=== PATIENT | male | born 1965 | race Caucasian/White ===

== ENCOUNTER → 2016-08-10 | Outpatient (CLI) | payer BC, OTHER ==
[~2016-08-10] MED LIST: AMB10 PO; ATOR-22 PO; CHOL1TAB42 PO; CLC100 PO; HYDR-5688 PO; ODVTWSS MS; OXYC-57 PO; OXYSR10 PO; PRLSR20 PO; PRLSRUNK
== END | disposition home or self-care (01) ==
LOC: C.RDSM 07:30
PROVIDERS: ATTEND Physical Medicine & Rehabilitation Sports Medicine
DX: M25.562 Pain in left knee (principal); Z96.60 Presence of unspecified orthopedic joint implant

== ENCOUNTER → 2016-08-16 | Outpatient (CLI) | payer BC, OTHER ==
--- NOTE | 2016-08-16 13:39 | DIAGNOSTIC IMAGING REPORT ---
ORBIT RADIOGRAPHS 3 VIEWS HISTORY: Pre-MRI screening. COMPARISON: ORBIT radiographs June 02, 2009. FINDINGS: There are no radiopaque foreign bodies identified within the orbits. IMPRESSION: No radiopaque foreign bodies identified within the orbits. Electronically signed by: Corey Morrison M.D. 08/16/2016 1:38 PM Dictated Date/Time: 08/16/2016 1:37 PM
--- NOTE | 2016-08-17 08:59 | DIAGNOSTIC IMAGING REPORT ---
PELVIS WITHOUT CONTRAST (MRI) CLINICAL HISTORY: Mass left pelvis status post bone graft harvest. COMPARISON STUDY: Pelvis radiograph July 21, 2007. TECHNIQUE: Utilizing a 1.5 Pamela magnet and dedicated coil, multiplanar, multiecho imaging of the pelvis was performed without intravenous contrast. FINDINGS: Markers were placed on the skin at site of palpable abnormality. Immediately deep to these markers, there is a 10.7 x 4 x 7.7 cm subcutaneous fluid collection which overlies the lateral aspect of the left iliac bone harvest site. A tract of fluid extends from this collection into the bone at the harvest site. There are fluid fluid levels with suspected debris within the subcutaneous fluid collection. No mass is identified on this exam. There is trace adjacent fluid. Postsurgical finding within the spine are noted. There is no pelvic lymphadenopathy. No additional fluid collections are present. There is no suspicious marrow replacement. No ascites is present within the pelvis. IMPRESSION: 10.7 x 4 x 7.7 cm subcutaneous fluid collection of the left hemipelvis which reflects the palpable abnormality and appears to communicate with the left iliac bone harvest site. Electronically signed by: Corey Morrison M.D. 08/17/2016 8:57 AM Dictated Date/Time: 08/16/2016 2:37 PM
== END | disposition home or self-care (01) ==
LOC: C.MRI 12:23
PROVIDERS: ATTEND Physical Medicine & Rehabilitation Sports Medicine
DX: R22.42 Localized swelling, mass and lump, left lower limb (principal)

== ENCOUNTER → 2016-08-27 | Outpatient (CLI) | payer BC, OTHER | END | disposition home or self-care (01) | LOC: C.RDSM 07:52 | PROVIDERS: ATTEND Physical Medicine & Rehabilitation Sports Medicine | DX: R22.42 Localized swelling, mass and lump, left lower limb (principal) ==

== ENCOUNTER → 2016-08-27 | Outpatient (CLI) | payer BC, OTHER ==
[2016-08-27 10:11] LABS: BASO % 0.5 %; BASO ABS # 0.03 K/uL (0-0.2); COMPLETE YES; EOS % 1.6 %; HEMATOCRIT 45.2 % (42-52); IG% 0.3 %; LYMPH % 43.8 %; LYMPH ABS # 2.77 K/uL (1.2-3.4); MEAN CELL VOLUME 89.9 fL (80-100); MEAN CORPUSCULAR HGB CONC 34.5 g/dl (32-36); MEAN PLATELET VOLUME 10.4 fL (7.4-10.4); MONO % 13.6 %; NEUT % 40.2 %; PLATELET COUNT 171 K/uL (130-400); RED BLOOD COUNT 5.03 M/uL (4.7-6.1); WHITE BLOOD COUNT 6.33 K/uL (4.8-10.8)
[2016-08-27 11:25] LABS: SYNOVIAL FLUID APPEARANCE TURBID; SYNOVIAL FLUID COLOR TAN
== END | disposition home or self-care (01) ==
LOC: C.LAB 09:15
PROVIDERS: ATTEND Physical Medicine & Rehabilitation Sports Medicine
DX: R22.42 Localized swelling, mass and lump, left lower limb (principal)

== ENCOUNTER → 2016-10-15 | Outpatient (CLI) | payer BC, OTHER | END | disposition home or self-care (01) | LOC: C.RDSM 08:14 | PROVIDERS: ATTEND Physical Medicine & Rehabilitation Sports Medicine | DX: M25.561 Pain in right knee (principal) ==

== ENCOUNTER → 2016-10-25 | Outpatient (CLI) | payer BC, OTHER ==
[~2016-10-25] MED LIST changes: -CLC100 PO; -ODVTWSS MS; -OXYC-57 PO; -OXYSR10 PO; -PRLSRUNK
== END | disposition home or self-care (01) ==
LOC: C.CPL 10:34
PROVIDERS: ATTEND Physician Assistant
DX: R22.42 Localized swelling, mass and lump, left lower limb (principal); Z01.818 Encounter for other preprocedural examination

== ENCOUNTER → 2016-10-28 | Day surgery (SDC) | payer BC, OTHER ==
[2016-10-19 10:16] VITALS: Ht 182.9 cm; Wt 136.4 kg
--- NOTE | 2016-10-27 12:14 | PAT Medication Instructions ---
Service Date Oct 27, 2016. Current Home Medication List Atorvastatin (Lipitor), 20 MG PO QAM Cholecalciferol (Vitamin D), 1 TAB PO QAM Hydrocodone/Acetaminophen 5MG/325MG ([place] 5MG/325MG), 1 TABLET PO BID PRN for Pain Omeprazole (Prilosec), 20 MG PO DAILY PRN for HEARTBURN Zolpidem Tartrate (Ambien *), 10 MG PO HS PRN Medication Instructions For Your Scheduled Surgery - Hold the following medications the morning of surgery: Cholecalciferol (Vitamin D), 1 TAB PO QAM - Take the following medications the morning of surgery with a sip of water: Hydrocodone/Acetaminophen 5MG/325MG ([place] 5MG/325MG), 1 TABLET PO BID PRN for Pain (okay to take up to 4 hours prior to surgery if needed) Omeprazole (Prilosec), 20 MG PO DAILY PRN for HEARTBURN (if needed) Atorvastatin (Lipitor), 20 MG PO QAM - Take the following medications as scheduled the night before surgery: Zolpidem Tartrate (Ambien *), 10 MG PO HS PRN (if needed) Hydrocodone/Acetaminophen 5MG/325MG ([place] 5MG/325MG), 1 TABLET PO BID PRN for Pain (if needed) Omeprazole (Prilosec), 20 MG PO DAILY PRN for HEARTBURN (if needed) If you have any questions please call us at [phone] or [phone] or [phone]
[2016-10-27 13:23] LABS: HEMATOCRIT 45.2 % (42-52); MEAN CELL VOLUME 90.8 fL (80-100); MEAN CORPUSCULAR HEMOGLOBIN 31.7 pg (25-34); MEAN PLATELET VOLUME 10.5 fL (7.4-10.4); PLATELET COUNT 183 K/uL (130-400); RED BLOOD COUNT 4.98 M/uL (4.7-6.1)
[2016-10-27 13:29] LABS: BUN/CREATININE RATIO 14.6 (10-20); CALCIUM 9.1 mg/dl (8.5-10.1); CREATININE 0.96 mg/dl (0.60-1.40); POTASSIUM 4.5 mmol/L (3.5-5.1)
[~2016-10-28] VITALS: Ht 182.9 cm; Wt 136.4 kg
[~2016-10-28] MED LIST changes: +ATROPINE SULFATE 0.1 MG/ML 5ML SYR IV PRN; +BUPIVACAINE/EPINEPHRINE 0.5% MPF 1:200,000 10 ML VIAL ONE; +CEFAZOLIN 3000 MG/65 ML D5W IV SCH; +CEFAZOLIN SOD IV SCH; +DEXAMETHASONE SOD INJ 4 MG/ML VIAL ONE; +EpHEDrine SULFATE INJ 50 MG/ML AMP IV PRN; +FENTANYL CITRATE INJ 50 MCG/1 ML 2 ML VIAL IV PRN; +FENTANYL CITRATE INJ 50 MCG/1 ML 2 ML VIAL ONE; +LACTATED RINGER'S 1000ML 1,000 ML IV SCH; +LIDOCAINE HCL 2% 2 ML VIAL (20MG/ML) ONE; +LIDOCAINE/EPINEPHRINE 1% INJ 50 ML VIAL ONE; +MIDAZOLAM HCL 1 MG/ML 2ML VIAL ONE; +MoRPHine SULFATE 2 MG/ML CARP IV PRN; +MoRPHine SULFATE 4 MG/ML 1 ML CARP\\VIAL IV PRN; +ONDANSETRON INJ 2 MG/ML 2 ML VIAL IV PRN; +ONDANSETRON INJ 2 MG/ML 2 ML VIAL ONE; +OXYCODONE/ACETAMINOPHEN 5-325 TAB PO PRN; +POVIDONE-IODINE OP SOLN 30 ML BTL TOP ONE; +PROPOFOL IV EMULSION 10 MG/ML 20 ML VIAL IV ONE; +SODIUM CHLORIDE 0.9% 1000ML 1,000 ML IV SCH
--- NOTE | 2016-10-28 11:16 | History & Physical Bridge Note ---
H&P Re-Evaluation Bridge Note: I have examined the patient, reviewed the History & Physical and in the interval since the performance of the History & Physical I have noted the following changes of clinical significance: No changes noted
--- NOTE | 2016-10-28 13:34 | Discharge Instructions-SurgCtr ---
Discharge Instructions Date of Service Oct 28, 2016. Visit Reason for Visit: Left Hip Cyst Discharge Discharge Diagnosis / Problem: left hip cyst Discharge Goals Goal(s): Decrease discomfort, Improve function, Increase independence Activity Recommendations Activity Limitations: per Instructions/Follow-up section Weightbearing Status: Left weightbearing (as tolerated) Anesthesia . Post Anesthesia Instructions: If you have had General Anesthesia or IV Sedation: * Do not drive today. * Resume driving when surgeon permits. * Do not make important decisions or sign legal documents today. * Call surgeon for: 1. Temperature elevations greater than 101 degrees F. 2. Uncontrollable pain. 3. Excessive bleeding. 4. Persistent nausea and vomiting. 5. Medication intolerance (nausea, vomiting or rash). * For nausea and vomiting use only clear liquids such as: tea, soda, bouillon until nausea subsides, then gradually increase diet as tolerated. * If you have any concerns or questions, call your surgeon's office. If physician is unavailable and it is an emergency, call 911 or go to the nearest emergency room. . Instructions / Follow-Up Instructions / Follow-Up DIET: * Resume previous diet. MEDICATIONS: * Please take your prescriptions as instructed at your pre-op appointment and/ or see medication discharge instructions listed above. * If concerns develop, call your physician's office at . SPECIAL CARE INSTRUCTIONS: * Ice to left hip as needed for pain and swelling. * Elevate left lower extremity as needed for swelling. * Keep dressing clean, dry, intact. * Empty and record Hemovac drain every 8 hours and as needed. Keep track of the amount of drainage emptied. * Use crutches or walker to assist with ambulation. * Your surgical extremity may be discolored due to prepping agents used on the skin. A bluish-green tint is a normal variant and should not cause alarm. Call your doctor at [phone] if: * Temperature above 101 degrees * Pain not relieved by pain medicine ordered * There is increased drainage or redness from any incision * You have any unanswered questions, problems or concerns. FOLLOW UP VISIT: * If not already scheduled, please call the office at to schedule a follow-up appointment. * You have a follow-up scheduled at [facility] orthopedics for dressing change on 10/29/2016 at 1:00 PM. * You have a follow-up scheduled with Dr. Rodriguez on 11/10/2016 at 12:00 PM Diet Recommendations Home Diet: no limitations, resume previous diet Procedures Procedures Performed: Left Hip Cyst Open Excision Pending Studies Studies pending at discharge: no Medical Emergencies . Who to Call and When: Medical Emergencies: If at any time you feel your situation is an emergency, please call 911 immediately. . Non-Emergent Contact Non-Emergency issues call your: Surgeon Call Non-Emergent contact if: temperature is above 101, your pain is not controlled, wound has increased drainage, wound has increased redness, wound has increased pain, you have any medication questions . . "Provider Documentation" section prepared by Barbara Sousa. . [place] Drug Monitoring Program Search Results: patient reviewed within database, no issues identified
--- NOTE | 2016-10-28 13:35 | [facility] Operative Report ---
Operative Report Operative Date Oct 28, 2016. Pre-Operative Diagnosis Left Hip Cyst Post-Operative Diagnosis Same Procedure(s) Performed Left Hip Cyst Open Excision Surgeon Dr. William Rodriguez Crane Ladle Person Surgeon(s) Khushbu Sousa PA-C Estimated Blood Loss 25 mL Findings Large fluid-filled cyst in the left iliac crest region status post iliac crest bone graft. Necrotic debris or foreign material in bone bed of prior iliac crest bone graft site. Specimens A. Cyst Left Hip B. Cyst Debris Left Hip Drains 2 Anesthesia laryngeal mask Complication(s) None Disposition Recovery Room / PACU Implants None Indications Patient's a 51-year-old male. He had a high tibial osteotomy done several years ago. Subsequent to that he developed a cyst at the site of the iliac crest bone graft harvest site. This was utilized to help heal his high tibial osteotomy. This cyst was aspirated in the past. The cyst was left as is until recently when it began to enlarge. The cyst was aspirated recently and cultures were obtained. Cholesterol crystals were noted. There was a low to mid range white blood cell count. Aerobic anaerobic fungal and AFB cultures were all negative. MRI demonstrated a cystic structure communicating with the iliac crest bone graft harvest site. The patient wishes to have this excised as it is very large. Description of Procedure Informed consent was obtained. Patient identified as Paulie Mariscal. He identified the operative site as the left hip. I marked with my initials. Preoperative surgical timeout performed. Appropriate dose of IV antibiotics was given. He was positioned supine on the operating room table. A laryngeal mask anesthetic was administered. A bump was placed under the left hip. He had a cyst about the size of a baseball located in the deep subcutaneous tissues of the left hip this was soft and pliable and it was located along the iliac crest. DVT prophylaxis will be don't thoroughly patient mobility. A routine prep and drape was performed. The prior surgical incision was utilized and opened with the knife. Blush Marcellus is utilized down through subcutaneous tissues. The cyst was identified. It was fairly readily dissected out from the surrounding tissues using electrocautery blunt dissection and scissors. Care was taken to protect the lateral femoral cutaneous nerve near the anterior region of the iliac crest. The nerve was not encountered during the dissection. Proficient portion of the cyst was dissected out of the subcutaneous tissues down to the level of the iliac crest. A pedicle was identified coursing towards the iliac crest bone graft site. The cyst was at this time amputated. It had a yellowish opaque fluid in it. Cyst had a very well-defined reactive zone. At this time I then encountered a lot more dense scar tissue around the prior iliac crest bone graft harvest site. Using combination of blunt dissection scissors and electrocautery this was dissected out down to the level of the bone. Within the bone bed of the prior iliac crest bone graft harvest site was brownish debris. This was curettaged out down to normal bone. Using a combination of curettage and rongeur the entire cyst area at the iliac crest was cleaned out down to normal-appearing bone. 2 separate specimens were sent one for the cyst itself and the other one for this debris of which there was about 25 mL. This could've been of necrotic bone Gelfoam or perhaps bone wax. Gelfoam was used in the prior surgery but documented that it was not left in place. Betadine lavage was performed. 2 drains were inserted one deep and one superficial. After the sequential closure of the layers the drains were pulled partially out tubing ensured there were nonincarcerated. The drains were brought out in line with the anterior portion of the incision and about a centimeter anterior to it. She irrigation was performed. 6 mL of local anesthetic 1% lidocaine and half percent Marcaine both with epinephrine were infiltrated into the iliac crest bone graft site. The remainder of the mixture was injected into the skin and subcutaneous tissues. The fascia over the iliac crest was closed with interrupted #1 Vicryl taking care nonincarcerated drain. Subcutaneous tissues were closed with 0 Vicryl 2-0 Vicryl and basil. Again care was taken not to incarcerate the drain. Soft sterile dressing was applied. The patient was awakened from anesthesia without difficulty and taken to the recovery room in stable condition. Specimens were as mentioned above. Counts were correct in the case. Blood loss was approximately 25 mL. At the conclusion operation I spoke patient's informed her my findings. Postoperative instructions were given. He will be seen tomorrow to have his drains pulled and if necessary drains will be continued through the weekend and they will be instructed to pull them at home. There is no significant bleeding and the wound was dry when the incision was closed. He may weight-bear as tolerated. He does not require any formal DVT prophylaxis. I attest to the content of the Intraoperative Record and any orders documented therein. Any exceptions are noted below.
--- NOTE | 2016-10-28 13:37 | [facility] Operative Report ---
Operative Report Operative Date Oct 28, 2016. Pre-Operative Diagnosis Left Hip Cyst Post-Operative Diagnosis Same Procedure(s) Performed Left Hip Cyst Open Excision Surgeon Dr. Eliud Rodriguez Software Database Architect Surgeon(s) Barbara Sousa PA-C Estimated Blood Loss 25 mL Findings Left hip cyst Specimens A. Cyst Left Hip B. Cyst Debris Left Hip Drains Hemovac 2 Anesthesia general anesthesia Complication(s) None Disposition Recovery Room / PACU (stable) Indications Patient is a 51-year-old male who is status post left tibial osteotomy with iliac crest bone grafting approximately 12 years ago. He recently has developed a cyst on his left hip at the iliac crest bone site. He says that fluctuated in size for the last couple of years. He developed pain a few months ago and was evaluated by Dr. Rodriguez. The cyst was aspirated and cultures were obtained and no infection was identified. He elected to have it removed. Surgical intervention was discussed. Risks and complications discussed. Informed consent obtained. X-rays which showed no bony abnormality and a MRI to further evaluate the cyst location. Description of Procedure Patient was taken to the operating room, placed under general anesthesia. He was given 3 g of IV Ancef for surgical prophylaxis. Timeout performed. This prepped and draped in routine sterile fashion. I was present during the entire case, please see Dr. Rodriguez's operative report for further detail. Patient was awakened and transferred to the recovery room in stable condition. I attest to the content of the Intraoperative Record and any orders documented therein. Any exceptions are noted below.
[2016-10-28 14:30] VITALS: TEMP 36.4
[2016-10-28 15:11] VITALS: BP 120/81; PULSE 78; O2SAT 94
--- NOTE | 2016-10-28 15:14 | Anesthesia Progress Nt - [facility] ---
Anesthesia Post Op Note Date & Time Oct 28, 2016 at 15:13 Vital Signs Pain Intensity: 0 Vital Signs Past 12 Hours Date Time Temp Pulse Resp B/P (MAP) Pulse Ox O2 Delivery O2 Flow Rate FiO2 10/28/16 15:11 78 16 120/81 (94) 94 Room Air 10/28/16 14:30 36.4 78 16 134/77 (96) 94 Room Air 10/28/16 14:13 36.4 79 16 115/79 97 Room Air 10/28/16 14:07 21 10/28/16 14:07 83 21 10/28/16 14:05 141/83 10/28/16 14:02 84 13 10/28/16 14:02 83 13 131/78 95 10/28/16 13:57 84 17 10/28/16 13:57 84 17 98 10/28/16 13:55 129/71 10/28/16 13:52 78 6 100 10/28/16 13:52 78 6 10/28/16 13:51 121/59 10/28/16 13:47 79 4 10/28/16 13:47 80 4 100 10/28/16 13:45 122/73 10/28/16 13:42 81 14 100 10/28/16 13:42 80 14 10/28/16 13:41 110/64 10/28/16 13:40 85 17 99 10/28/16 13:40 84 17 10/28/16 13:35 89 12 10/28/16 13:35 89 12 122/65 97 10/28/16 13:32 122/65 10/28/16 13:31 36.4 86 16 122/65 100 Mask 10 10/28/16 10:00 37.0 61 22 131/84 (100) 96 Room Air Notes Mental Status: alert / awake / arousable, participated in evaluation Pt Amnestic to Procedure: Yes Nausea / Vomiting: adequately controlled Pain: adequately controlled Airway Patency, RR, SpO2: stable & adequate BP & HR: stable & adequate Hydration State: stable & adequate Anesthetic Complications: no major complications apparent
== END | disposition home or self-care (01) ==
LOC: X.SURG 09:34
PROVIDERS: ATTEND Physical Medicine & Rehabilitation Sports Medicine
DX: M71.352 Other bursal cyst, left hip (principal); K21.9 Gastro-esophageal reflux disease without esophagitis; E66.9 Obesity, unspecified; Z79.899 Other long term (current) drug therapy

== ENCOUNTER 2021-10-20 06:12 | Observation (INO) ==
--- NOTE | 2021-09-29 10:09 | History & Physical Report ---
Date of Service September 29, 2021 date of surgery: 10/20/21 procedure: Right Total Knee Arthroplasty Surgeon: Sathya Serrano Assessment & Plan (1) Arthritis of right knee: Plan: Risks and benefits of procedure discussed in detail today, patient would like to proceed with a Right total knee replacement at [facility] as scheduled. will obtain medical clearance from Dr Danielle prior to surgery as well as obtain PATs at [facility]. He also has a pain contract with Dr Danielle and he will discuss with her his post op pain medications. Will place on ASA 81mg po bid x 1 month post op, f/u 2 weeks post op for routine post-operative care and x-ray, sooner if having any problems. will make arrangements for HHPT at the time of discharge. At this point in time, has failed conservative measures and would like to proceed with surgical intervention. The risks and benefits have been discussed including, but not limited to, risk of infection, nerve injury, stiffness, loss of motion, failure to improve, etc. Reasonable outcomes and options of treatment were discussed. An explanation of appropriate alternatives to the procedure that may be advantageous were discussed and their risks and benefits, as well as the risks and benefits of not proceeding with treatment. I offered to answer any additional inquiries concerning the treatment involved. All the patient's questions were answered. The patient is agreeable, understanding of the treatment plan and alternatives, and wishes to proceed with the treatment plan. History of Present Illness Chief Complaint: right knee pain Primary Care Provider: Melly Danielle Mr Wyman is a 56 year old male who complains of right knee pain, presents for pre-op evaluation prior to a right total knee replacement by Dr Serrano at [facility]. He complains of pain, decreased range of motion, instability and stiffness in his right knee. Currently he states that the symptoms are moderate-severe and rated at 7/10. The pain is described as aching, sharp and throbbing. His symptoms are aggravated by ascending stairs, daily activities, first steps while awake walking. Prior NSAIDs include IBU and Aleve. He has been treated with previous visco injections as well as cortisone injection in the past without much relief. He does have history left TKA by Dr Rodriguez several years ago. Allergies Allergy/AdvReac Type Severity Reaction Status Date / Time No Known Allergies Allergy Unknown Verified 06/09/21 07:29 Home Medications Medication Instructions Recorded Confirmed Type aspirin 81 mg tablet,delayed 81 mg PO QAM 06/09/21 06/09/21 History release atorvastatin 20 mg tablet 20 mg PO QAM 06/09/21 06/09/21 History cholecalciferol (vitamin D3) 25 25 mcg PO QAM 06/09/21 06/09/21 History mcg (1,000 unit) capsule (Vitamin D3) meclizine 25 mg tablet 25 mg PO BID PRN 06/09/21 06/09/21 History saw palmetto 160 mg capsule 160 mg PO QAM 06/09/21 06/09/21 History zolpidem 10 mg tablet (Ambien) 10 mg PO HS 06/09/21 06/09/21 History Past Med/Surg History Medical History Acid reflux occasional, chronic, stable per pt, triggered by overeating Dyspnea on exertion ongoing x mos, ongoing eval with PCP, worsened since COVID illness 04/2021 Elevated hemidiaphragm right History of COVID-19 05/25/21>BAD COLD SYMPTOMS feeling better but reported pre-existing dyspnea on exertion has worsened including with regular walking, ongoing evaluation with PCP Hx of vertigo occasional, chronic, denies specific trigger, prn meclizine Hyperlipidemia Insomnia Surgical History Fusion of spine LUMBAR H/O knee surgery MULTIPLE LEFT KNEE SURGERIES BEFORE TKA History of appendectomy History of colonoscopy History of radial keratotomy History of tooth extraction History of total knee replacement LEFT Hx of vasectomy [place] teeth removed Family History Father Family history of diabetes mellitus Brother Family hx of colon cancer Other No family history of adverse response to anesthesia Social History Smoking Status: Never smoker Second Hand Exposure: Yes ("YEARS AGO"); Hx Alcohol Use: Yes Alcohol type: beer Preferred Language: Upper Sorbian Gaming Cage Worker Required: No Beliefs That Will Affect Care: None Current Living Situation: Spouse Feels Safe at Home: Yes Assistive Devices: Cane, Denture - Upper and Glasses Review of Systems Review of Systems: All systems reviewed & are unremarkable except as noted in HPI & below Constitutional: no fever, no chills and no sweats Respiratory: no cough and no dyspnea Cardiovascular: no chest pain, no dyspnea and no orthopnea Gastrointestinal: no abdominal pain, no nausea and no vomiting Musculoskeletal: as per Subjective / HPI Physical Exam Physical Exam: HT: 72 in WT: 300 lb Constitutional: WD/WN, vitals as above no acute distress Respiratory: normal respiratory effort, lungs clear to auscultation no respiratory distress, no labored breathing and does not use accessory muscles Cardiovascular: RRR, no murmur, no edema Gastrointestinal (Abdomen): normal bowel sounds, soft, nontender, no hepatosplenomegaly Musculoskeletal: Knee: + knee abnormal to inspection (RIGHT KNEE), + effusion (+1 effusion), + limited ROM of knee (ROM 0/3/110), + knee ROM with crepitation, + joint line tenderness (medial joint line) and + Andi's sign positive; no deformity, no skin erythema, no ecchymosis, no valgus laxity, no varus laxity, anterior drawer test negative, Mary's sign negative and pivot shift test negative Results & Data Results & Data ([facility]) Diagnostic Findings Right Knee X-ray: Right knee series showing advanced degenerative changes to the right knee, narrowing of the medial compartment and patello-femoral joint with patellar spurring noted, findings showing joint space narrowing of the medial compartment and patello-femoral joint, osteophyte formation and subchondral sclerosis noted. overall varus alignment. no acute bony pathology noted.
--- NOTE | 2021-10-09 13:54 | Anesthesiology Consultation ---
Date of Service October 09, 2021 Assessment & Plan (1) Encounter for pre-operative examination: Plan - PCP clearance 07/31/21: "...stress test negative. Labwork appropriate...cleared for R total knee replacement from PCP standpoint...being worked up for sleep apnea..." - COVID screening: Per retort unloader on 10/09/2021: Travel screen negative, no known COVID-19 positive contacts or current COVID-19 related symptoms in past 2 weeks. Pt vaccinated. Surgeon arranging preop COVID testing, scheduled 10/16/2021. Awaiting results. Chart Review Chart Review: Acceptable Risk for Surgery and Patient NOT seen in Pre Admission Testing History Surgery Operation Date: 10/20/21 08:35 Proposed Procedures p Right Total Knee Arthroplasty - Sathya Serrano DO Height/Weight Height: 6 ft Weight: 133.81 kg Allergies Allergy/AdvReac Type Severity Reaction Status Date / Time No Known Allergies Allergy Unknown Verified 10/09/21 09:49 Medications Home Medications Medication Instructions Recorded Confirmed Last Taken aspirin 81 mg tablet,delayed 81 mg PO QAM 06/09/21 10/09/21 Unknown release atorvastatin 20 mg tablet 20 mg PO QAM 06/09/21 10/09/21 Unknown cholecalciferol (vitamin D3) 25 25 mcg PO QAM 06/09/21 10/09/21 Unknown mcg (1,000 unit) capsule (Vitamin D3) meclizine 25 mg tablet 25 mg PO BID PRN Vertigo 06/09/21 10/09/21 Unknown saw palmetto 160 mg capsule 160 mg PO QAM 06/09/21 10/09/21 Unknown zolpidem 10 mg tablet (Ambien) 10 mg PO HS 06/09/21 10/09/21 Unknown losartan 25 mg tablet 25 mg PO QAM 10/09/21 10/09/21 Unknown Past Medical History Medical History (Updated 10/09/21 @ 13:46 by Denise Hernandez PA-C) Acid reflux occasional, chronic, stable per pt, triggered by overeating Dyspnea on exertion ongoing x mos, ongoing eval with PCP, worsened since COVID illness 04/2021 update 10/09/21- states feeling better, continues to have mild sob at times mostly when active; recently started cpap Elevated hemidiaphragm right History of COVID-19 05/25/21>BAD COLD SYMPTOMS feeling better but reported pre-existing dyspnea on exertion has worsened including with regular walking, ongoing evaluation with PCP update 10/09/21- states feeling better, continues to have mild sob at times mostly when active; recently started cpap Hx of vertigo occasional, chronic, denies specific trigger, prn meclizine 10/09/21- has not had any vertigo issues in over 6 mos per pt Hyperlipidemia Hypertension Sleep apnea cpap Past Family History Family History Father Family history of diabetes mellitus Brother Family hx of colon cancer Other No family history of adverse response to anesthesia Past Surgical History Surgical History Fusion of spine LUMBAR H/O knee surgery MULTIPLE LEFT KNEE SURGERIES BEFORE TKA History of appendectomy History of colonoscopy History of radial keratotomy History of tooth extraction History of total knee replacement LEFT Hx of vasectomy [place] teeth removed Social History Smoking Status: Never smoker Do You Dip or Chew Tobacco: No Hx Alcohol Use: Yes Alcohol type: beer alcohol intake frequency: a few times a month Hx Substance Use: No substance use type: does not use Lab Results Anesthesia Preop Results Results Anesthesia Widget: WBC 6.06 K/ul (4.8-10.8) 10/05/21 Hgb 15.5 g/dl (14.0-18.0) 10/05/21 Hct 45.5 % (40.1-51.0) 10/05/21 Plt 179 K/uL (130-400) 10/05/21 Na 136 mmol/L (136-145) 10/05/21 K 4.3 mmol/L (3.5-5.1) 10/05/21 Cl 104 mmol/L (98-107) 10/05/21 CO2 26 mmol/L (21-32) 10/05/21 BUN 15 mg/dl (6-23) 10/05/21 Creat 0.81 mg/dl (0.6-1.4) 10/05/21 Glucose Level 121 mg/dl (70-99(Fasting)) H 10/05/21 PT 10.4 Seconds (9.0-12.0) 10/05/21 PTT 27.3 Seconds (21.0-31.0) 10/05/21 INR 1.0 (0.9-1.1) 10/05/21 HA1c 5.7 % (4.5-5.6) H 10/05/21 Urine Color Yellow 10/05/21 Urine Appearance Clear (Clear) 10/05/21 Urine pH 5.5 (4.5-7.5) 10/05/21 Urine Specific Supply 1.020 (1.000-1.030) 10/05/21 Urine Protein Negative (Negative) 10/05/21 Urine Glucose (UA) Negative (Negative) 10/05/21 Urine Ketones Negative (Negative) 10/05/21 Urine Blood Negative (Negative) 10/05/21 Urine Nitrite Negative (Negative) 10/05/21 Urine Bilirubin Negative (Negative) 10/05/21 Urine Urobilinogen Negative (Negative) 10/05/21 Urine Leukocyte Esterase Negative (Negative) 10/05/21 Testing Electrocardiogram Date: 06/12/21 Sinus rhythm with 1st degree AV block, rate 75 bpm Chest X-Ray Date: 06/12/21 EF 55-60% No regional wall motion abnormalities Mildly increased wall thickness Grade I diastolic dysfunction No significant valvular pathology Echocardiogram Date: 06/11/21 EF 55-60% No regional wall motion abnormalities Mildly increased wall thickness Grade I diastolic dysfunction No significant valvular pathology Stress Test Date: 07/17/21 Exercise Negative for ischemia at workload of 10 METS, MPHR 85%
[~2021-10-20 06:12] MED LIST changes: +ACETAMINOPHEN 500 MG TAB PO SCH; -AMB10 PO; -ATOR-22 PO; -ATROPINE SULFATE 0.1 MG/ML 5ML SYR IV PRN; -BUPIVACAINE/EPINEPHRINE 0.5% MPF 1:200,000 10 ML VIAL ONE; -CEFAZOLIN 3000 MG/65 ML D5W IV SCH; -CEFAZOLIN SOD IV SCH; -CHOL1TAB42 PO; +CeleBREX 200 MG CAP PO SCH; -DEXAMETHASONE SOD INJ 4 MG/ML VIAL ONE; -EpHEDrine SULFATE INJ 50 MG/ML AMP IV PRN; +FAMOTIDINE 20 MG TAB PO SCH; -FENTANYL CITRATE INJ 50 MCG/1 ML 2 ML VIAL IV PRN; -FENTANYL CITRATE INJ 50 MCG/1 ML 2 ML VIAL ONE; +GABAPENTIN 600 MG DOSE PO SCH; -HYDR-5688 PO; -LACTATED RINGER'S 1000ML 1,000 ML IV SCH; -LIDOCAINE HCL 2% 2 ML VIAL (20MG/ML) ONE; -LIDOCAINE/EPINEPHRINE 1% INJ 50 ML VIAL ONE; +LR 500ML BOLUS, THEN 15ML/HR IV SCH; +METOCLOPRAMIDE HCL 10 MG TABLET PO SCH; -MIDAZOLAM HCL 1 MG/ML 2ML VIAL ONE; -MoRPHine SULFATE 2 MG/ML CARP IV PRN; -MoRPHine SULFATE 4 MG/ML 1 ML CARP\\VIAL IV PRN; -ONDANSETRON INJ 2 MG/ML 2 ML VIAL IV PRN; -ONDANSETRON INJ 2 MG/ML 2 ML VIAL ONE; -OXYCODONE/ACETAMINOPHEN 5-325 TAB PO PRN; -POVIDONE-IODINE OP SOLN 30 ML BTL TOP ONE; -PRLSR20 PO; -PROPOFOL IV EMULSION 10 MG/ML 20 ML VIAL IV ONE; +ROPIVACAINE 0.5% HCL/PF 150 MG, BUPIVACAINE 0.75% MPF 20 ML, EPINEPHrine 30MG/30ML (OR ... INSTIL SCH; -SODIUM CHLORIDE 0.9% 1000ML 1,000 ML IV SCH; +TRANEXAMIC ACID 1,000 MG **IV Intra-op IV SCH; +TRANEXAMIC ACID 1,000 MG **IV Pre-op IV SCH; +dexAMETHasone 4 MG TAB PO SCH
[2021-10-20] MEDS ORDERED: ROPIVACAINE 0.5% 5 MG/ML 30 ML VIAL ONE (06:35)
[2021-10-20] MEDS ORDERED: BUPIVACAINE 0.5 % 5 MG/1 ML PF 10ML VIAL ONE (06:35)
[2021-10-20] MEDS ORDERED: EPINEPHrine INJ 1 MG/ML AMP ONE (06:35)
[2021-10-20] MEDS ORDERED: KETOROLAC 30 MG/ML VIAL ONE (07:12)
[2021-10-20] MEDS ORDERED: DEXAMETHASONE SOD INJ 4 MG/ML VIAL ONE (07:12)
[2021-10-20] MEDS ORDERED: LIDOCAINE 2% MPF LOCAL 5 ML VIAL INFIL ONE (07:12)
[2021-10-20] MEDS ORDERED: PROPOFOL IV EMULSION 10 MG/ML 20 ML VIAL IV ONE ×5 (07:12→09:58)
[2021-10-20] MEDS ORDERED: fentaNYL citrate 100 MCG/2 ML VIAL ONE (07:13)
[2021-10-20] MEDS ORDERED: MIDAZOLAM HCL 1 MG/ML 2ML VIAL ONE (07:13)
--- NOTE | 2021-10-20 07:13 | History & Physical Bridge Note ---
Date of Service October 20, 2021 History & Physical Bridge Note I have examined the patient, reviewed the History & Physical and in the interval since the performance of the History & Physical I have noted the following changes of clinical significance: no changes noted
[2021-10-20] MEDS ORDERED: ORTHO JOINT ANESTHETIC ONE (07:16)
[2021-10-20] MEDS ORDERED: ATROPINE SULFATE 0.1 MG/ML 10ML SYR IV PRN (07:43)
[2021-10-20] MEDS ORDERED: ePHEDrine sulfate 50 MG/ML AMP IV PRN (07:43)
[2021-10-20] MEDS ORDERED: fentaNYL citrate 100 MCG/2 ML VIAL IV PRN (07:43)
[2021-10-20] MEDS ORDERED: PHENYLEPHRINE 100MCG/ML 5ML SYR IV PRN (07:43)
[2021-10-20] MEDS ORDERED: ONDANSETRON INJ 2 MG/ML 2 ML VIAL IV PRN ×2 (07:43→11:35)
[2021-10-20] MEDS ORDERED: LABETALOL HCL IV 5 MG/ML 20ML IV PRN (07:43)
[2021-10-20] MEDS ORDERED: HYDROmorphone INJ 1 MG/ML SYRINGE IV PRN ×2 (07:43→11:35)
[2021-10-20] MEDS ORDERED: MEPERIDINE HCL 25 MG/ML CARP/VIAL IV PRN (07:43)
[2021-10-20] MEDS ORDERED: KETAMINE 50 MG/5 ML SYRINGE ONE (08:54)
--- NOTE | 2021-10-20 10:04 | Operative Report ---
Post Operative Report Pre & Post Diagnosis Operation Date: 10/20/21 08:25 Pre-Op Diagnosis: Osteoarthritis Right Knee Post-Op Diagnosis: Osteoarthritis Right Knee I identified the patient and participated in the time-out.: Yes Procedure Operation Date: 10/20/21 08:25 Actual Procedures p Right Total Knee Arthroplasty(Right) - Sathya Serrano DO Surgeon Sathya Serrano DO Estimated Blood Loss 5 I attest to the content of the Intraoperative Record and any orders documented therein. Any exceptions are noted below.
--- NOTE | 2021-10-20 10:07 | Operative Report ---
Post Operative Report Pre & Post Diagnosis Operation Date: 10/20/21 08:25 Pre-Op Diagnosis: Osteoarthritis Right Knee Post-Op Diagnosis: Osteoarthritis Right Knee I identified the patient and participated in the time-out.: Yes Procedure Operation Date: 10/20/21 08:25 Actual Procedures p Right Total Knee Arthroplasty(Right) utilizing [employer] persona femur 12 standard tibia each polyten medial constrained patella 37 oval- Sathya Serrano DO Surgeon Sathya Serrano DO Road Test Examiner SONIYA Perez Estimated Blood Loss 5 Findings Consistent with Post-Op Diagnosis Patient presents with severe tricompartmental DJD varus alignment subchondral sclerosis marginal osteophytes eburnated [id number] with a moderate to large effusion Specimens Bone and cartilage Drains Medium bore Hemovac Anesthesia Type MAC Spinal Regional Complications none Disposition Accompanied Patient To Recovery: No Disposition: Recovery Room Indications After proper prepping and draping of the Right lower extremity anterior midline incision was made over the region of the extensor extensor mechanism after meticulous hemostasis was obtained and maintained in subcutaneous tissues a medial parapatellar incision was made The patella was subluxed lateralward the medial lateral gutter were cleaned from any hypertrophic synovitis and scar tissue of the distal femoral block was placed and the distal femoral osteotomy cut was made subsequently the chamfers anterior and posterior osteotomy cuts were made utilizing the 4-in-1 block the tibia was subsequently subluxed anteriorward medial and ateral meniscal remnants were excised in their entirety remnants of the anterior and posterior cruciate ligaments were excised in their entirety excellent exposure of the proximal tibia was obtained the tibial osteotomy guide was placed on the proximal tibial osteotomy cut was made once again the knee was irrigated with copious amounts of sterile saline solution the patella was subsequently everted lateralward thickened scar tissue around the patella was removed the patella was subsequently cut utilizing a freehand technique and was drilled prepared for final preparation and placement of patella socially flexion-extension gaps were checked and the equal and symmetric trials were placed to the appropriate femoral and tibial trials with poly-spacer being placed for equal flexion and extension gaps and full range of motion including extension to 0 and flexion to 140 the trial components after having been taken to recovery range of motion was subsequently removed meticulous hemostasis was obtained and maintained subsequently a knee block injection of joint cocktail including ropivacaine 0.5% 150 mg. Bupivacaine 0.5% epinephrine 1-200,030 mL's toradol 30 mg dexamethasone 4 mg ketamine 10 mg clonidine 100 micrograms normal saline solution 30 mg was infiltrated into the soft tissues of the posterior knee medial lateral gutters and periosteal synovium special attention was paid to protect neurovascular structures at all times subsequently trial components having been removed the knee was irrigated with sterile saline solution. debris was removed the proximal tibia was subsequently prepared and was made ready for the placement of the tibial component tibial component was also cemented and tamped into position the femoral component was subsequently placed and cemented in the position the patellar component was subsequently cemented in position because hemostasis once again obtained and maintained wound having been thoroughly irrigated with debridement and debridement lavage was performed as well as a medial parapatellar incision closed with #1 Vicryl in interrupted fashion subcutaneous was closed with #2 Vicryl skin was closed with skin clips. PA-C was necessary for prepping and drapping as well as wound closure of deep fascia Sub cutaneous tissue and skin and was necessary for the case. A sterile compressive dressing was placed patient was taken to recovery in stable condition of report dictated by Zach Gong attest to the content of the Intraoperative Record and any orders documented therein. Any exceptions are noted below.Due to the complex nature of the procedure, the entire surgery was performed with the operational assistance of SONIYA Perez. The assistant football coach, under direct supervision, was involved in the actual performance of all aspects of the surgical procedure including hemostasis, tissue retraction and incision, instrument management, patient positioning, and wound closure. Description of Procedure After proper prepping and draping of the Right lower extremity anterior midline incision was made over the region of the extensor extensor mechanism after meticulous hemostasis was obtained and maintained in subcutaneous tissues a medial parapatellar incision was made The patella was subluxed lateralward the medial lateral gutter were cleaned from any hypertrophic synovitis and scar tissue of the distal femoral block was placed and the distal femoral osteotomy cut was made subsequently the chamfers anterior and posterior osteotomy cuts were made utilizing the 4-in-1 block the tibia was subsequently subluxed anteriorward medial and ateral meniscal remnants were excised in their entirety remnants of the anterior and posterior cruciate ligaments were excised in their entirety excellent exposure of the proximal tibia was obtained the tibial osteotomy guide was placed on the proximal tibial osteotomy cut was made once again the knee was irrigated with copious amounts of sterile saline solution the patella was subsequently everted lateralward thickened scar tissue around the patella was removed the patella was subsequently cut utilizing a freehand technique and was drilled prepared for final preparation and placement of patella socially flexion-extension gaps were checked and the equal and symmetric trials were placed to the appropriate femoral and tibial trials with poly-spacer being placed for equal flexion and extension gaps and full range of motion including extension to 0 and flexion to 140 the trial components after having been taken to recovery range of motion was subsequently removed meticulous hemostasis was obtained and maintained subsequently a knee block injection of joint cocktail including ropivacaine 0.5% 150 mg. Bupivacaine 0.5% epinephrine 1-200,030 mL's toradol 30 mg dexamethasone 4 mg ketamine 10 mg clonidine 100 micrograms normal saline solution 30 mg was infiltrated into the soft tissues of the posterior knee medial lateral gutters and periosteal synovium special attention was paid to protect neurovascular structures at all times subsequently trial components having been removed the knee was irrigated with sterile saline solution. debris was removed the proximal tibia was subsequently prepared and was made ready for the placement of the tibial component tibial component was also cemented and tamped into position the femoral component was subsequently placed and cemented in the position the patellar component was subsequently cemented in position because hemostasis once again obtained and maintained wound having been thoroughly irrigated with debridement and debridement lavage was performed as well as a medial parapatellar incision closed with #1 Vicryl in interrupted fashion subcutaneous was closed with #2 Vicryl skin was closed with skin clips. PA-C was necessary for prepping and drapping as well as wound closure of deep fascia Sub cutaneous tissue and skin and was necessary for the case. A sterile compressive dressing was placed patient was taken to recovery in stable condition of report dictated by Zach I attest to the content of the Intraoperative Record and any orders documented therein. Any exceptions are noted below.Due to the complex nature of the procedure, the entire surgery was performed with the operational assistance of SONIYA Perez. The assistant football coach, under direct supervision, was involved in the actual performance of all aspects of the surgical procedure including hemostasis, tissue retraction and incision, instrument management, patient positioning, and wound closure. I attest to the content of the Intraoperative Record and any orders documented therein. Any exceptions are noted below.
--- NOTE | 2021-10-20 11:12 | Anesthesiology Progress Note ---
Date of Service October 20, 2021 Anesthesia Post Procedure Vital Signs Vital Signs: Temp Pulse Pulse Resp BP Pulse Ox O2 Del Method 10/20/21 10:55 76 15 125/64 91 Room Air 10/20/21 10:45 85 18 123/55 L 94 Oxymask 10/20/21 10:38 37.1 C 88 20 108/52 L 97 Oxymask 10/20/21 07:19 37 C 70 20 137/89 96 Room Air O2 Flow Rate 10/20/21 10:55 10/20/21 10:45 5 10/20/21 10:38 5 10/20/21 07:19 Transfer of Care Handoff Completed per policy Notes Mental Status: alert / awake / arousable Patient Amnestic to Procedure: Yes Nausea / Vomiting: adequately controlled Pain: adequately controlled Airway Patency, RR, SpO2: stable & adequate BP & HR: stable & adequate Hydration State: stable & adequate Neuraxial Anesthesia: was administered and sensory block is resolving Anesthetic Complications: no major complications apparent and Pt Satisfied with anesthetic care
[2021-10-20] MEDS ORDERED: METOCLOPRAMIDE HCL INJ 5 MG/ML 2 ML VIAL IV PRN (11:35)
[2021-10-20] MEDS ORDERED: NALOXONE HCL 0.4 MG/1 ML VIAL/CARP IV PRN (11:35)
[2021-10-20] MEDS ORDERED: MAGNESIUM HYDROXIDE SUSP 30 ML UDC PO PRN (11:35)
[2021-10-20] MEDS ORDERED: bisacodyL 10 MG SUPP PR PRN (11:35)
[2021-10-20] MEDS ORDERED: MECLIZINE HCL 25 MG TAB PO PRN (11:35)
[2021-10-20] MEDS ORDERED: diphenhydrAMINE Capsule 25 MG CAP PO PRN (11:35)
[2021-10-20] MEDS: SODIUM CHLORIDE 0.9% 1000ML 1,000 ML IV SCH ×2 (11:40→21:47)
--- NOTE | 2021-10-20 12:06 | XRay Report ---
XR knee RT 1 or 2V routine HISTORY: 56 years-old Male Surgical Post Op right knee total joint arthroplasty COMPARISON: 10/15/2016 TECHNIQUE: 2 views of the right knee FINDINGS: Total joint arthroplasty with patellar resurfacing. Expected postoperative soft tissue swelling with deep tissue air an surgical drainage catheter. Subcentimeter calcification of the medial distal thigh is unchanged. No acute fracture, malalignment or unexpected opaque foreign body. IMPRESSION: Total joint arthroplasty with expected postoperative changes. ACT 112: Negative or not required by law. The above report was generated using voice recognition software. It may contain grammatical, syntax o r spelling errors. Electronically signed by: Sherif Colindres M.D. 10/20/2021 12:05 PM
[2021-10-20] MEDS: KETOROLAC TROMETHAMINE 15 MG/ML VIAL IV SCH ×3 (12:40→22:40)
[2021-10-20] MEDS: ACETAMINOPHEN 500 MG TAB PO SCH ×2 (13:42→21:07)
[2021-10-20] MEDS: ceFAZolin 2000MG 2,000 MG/15 ML SYR IV SCH (16:21)
[2021-10-20] MEDS: oxyCODONE HCL IR 5 MG TAB (IMMEDIATE RELEASE) PO PRN ×2 (18:06→22:40)
[2021-10-20] MEDS ORDERED: SENNA 8.6 MG TAB PO SCH (21:00)
[2021-10-20] MEDS ORDERED: ZOLPIDEM TARTRATE 10 MG TAB PO SCH (21:00)
[2021-10-20] MEDS: ASPIRIN 81 MG ECTAB PO SCH (21:05)
[2021-10-20] MEDS: DOCUSATE SODIUM 100 MG CAP PO SCH (21:07)
[2021-10-21] MEDS: ceFAZolin 2000MG 2,000 MG/15 ML SYR IV SCH (00:43)
[2021-10-21 06:14] LABS: Hematocrit (blood only) 37.7 % (40.1-51.0); Mean Corpuscular Hemoglobin 30.7 pg (25.0-34.0); Mean Corpuscular Hgb Conc 34.5 g/dL (32.0-36.0); Mean Corpuscular Volume 89.1 fL (80.0-100.0); Mean Platelet Volume 10.1 fL (9.4-12.4); Platelet Count 171 K/uL (130-400); RDW Coefficient of Variation 12.2 % (11.5-14.5); RDW Standard Deviation 39.7 fL (36.4-46.3); Red Blood Count 4.23 M/uL (4.63-6.08)
[2021-10-21] MEDS: oxyCODONE HCL IR 5 MG TAB (IMMEDIATE RELEASE) PO PRN ×2 (06:15→13:34)
[2021-10-21] MEDS: ACETAMINOPHEN 500 MG TAB PO SCH (06:15)
[2021-10-21] MEDS: DOCUSATE SODIUM 100 MG CAP PO SCH (06:16)
[2021-10-21] MEDS: ASPIRIN 81 MG ECTAB PO SCH (06:16)
[2021-10-21] MEDS: KETOROLAC TROMETHAMINE 15 MG/ML VIAL IV SCH (06:18)
[2021-10-21 06:49] LABS: BUN Creatinine Ratio 27.1 (10-20); Calcium 8.2 mg/dl (8.5-10.1); Creatinine Clr Calc Pharmacy 132.4 ml/min; Est GFR (African American) 111.3 ml/min; Potassium 4.7 mmol/L (3.5-5.1)
--- NOTE | 2021-10-21 07:23 | Orthopedic Progress Note ---
Date of Service October 21, 2021 Assessment & Plan (1) Arthritis of right knee: Plan: Postop day #1 right total knee -PT/OT -Pain management as written -DVT prophylaxis: SCDs, teds, aspirin 81 mg twice daily -AM labs: Hemoglobin at 13. Kidney function normal. -Discharge planning: Plan on discharge home with outpatient therapy. We will recheck him this afternoon after therapy. If Hemovac drainage decreases and physical therapy plan on discharge home today. Admission and Anticipated Discharge Date Admission Date: October 20, 2021 Subjective Patient is postop day 1 right total knee. He is doing well this morning, pain is well controlled. No other complaints. Denies chest pain, shortness of breath, lightheadedness, dizziness, nausea/vomiting/diarrhea. Review of Systems Review of Systems: All systems reviewed & are unremarkable except as noted in Subjective Physical Exam Physical Exam: Right knee dressing is clean, dry, intact. Hemovac in place. Toes are mobile. Good dorsiflexion. No calf tenderness. Distally neurovascular status and sensation intact. Constitutional: WD/WN, vitals as above Results & Data ([facility]) Vital Signs (Past 12 Hours) Vital Signs Temp Pulse Resp BP Pulse Ox O2 Del Method 10/21/21 06:22 56 L 138/75 10/21/21 04:00 37 C 62 16 100/66 93 CPAP 10/20/21 21:03 36.7 C 73 20 111/64 91 Room Air
[2021-10-21] MEDS ORDERED: MULTIVITAMIN TAB PO SCH (09:00)
[2021-10-21] MEDS ORDERED: ATORVASTATIN 20 MG TAB PO SCH (09:00)
[2021-10-21] MEDS ORDERED: LOSARTAN POTASSIUM 25 MG TAB PO SCH (09:00)
[2021-10-21] MEDS ORDERED: CHOLECALCIFEROL 1,000 UNITS 25 MCG TAB PO SCH (09:00)
[2021-10-21] MEDS ORDERED: CeleBREX 200 MG CAP PO SCH (12:00)
--- NOTE | 2021-10-21 17:56 | Discharge Summary ---
Date of Service date of discharge: October 21, 2021 date of admission: 10-20-21 Admission HPI Per Admitting Provider Mr Wyman is a 56 year old male who complains of right knee pain, presents for pre-op evaluation prior to a right total knee replacement by Dr Morales at [facility]. He complains of pain, decreased range of motion, instability and stiffness in his right knee. Currently he states that the symptoms are moderate-severe and rated at 7/10. The pain is described as aching, sharp and throbbing. His symptoms are aggravated by ascending stairs, daily activities, first steps while awake walking. Prior NSAIDs include IBU and Aleve. He has been treated with previous visco injections as well as cortisone injection in the past without much relief. He does have history left TKA by Dr Rodriguez several years ago. Principal Diagnosis right knee arthritis Discharge Exam Musculoskeletal right knee: NVDI, calf SNT, negative tierra sign. DP palpable, able to wiggle toes/ankle movement without difficulty. ROJAS dressing clean dry and intact. expected post-operative bruising noted. Discharge Data Allergies Allergy/AdvReac Type Severity Reaction Status Date / Time No Known Allergies Allergy Unknown Verified 10/20/21 07:22 Procedures Performed Operation Date: 10/20/21 08:25 Actual Procedures p Right Total Knee Arthroplasty(Right) - Sathya Morales DO Ordered Studies 10/20/21 05:00 US - OR guided needle placemen Routine Hospital Course (1) Arthritis of right knee: Postop day #1 right total knee -PT/OT -Pain management as written -DVT prophylaxis: SCDs, teds, aspirin 81 mg twice daily -AM labs: Hemoglobin at 13. Kidney function normal. -Discharge planning: Plan on discharge home with outpatient therapy. We will recheck him this afternoon after therapy. If Hemovac drainage decreases and physical therapy plan on discharge home today. Total Time Total Time Spent Total Time Spent (In Minutes): 20 Discharge Plan Discharge Items Patient Disposition: Home - Self-Care Reason For Visit: Osteoarthritis Right Knee Discharge Diagnosis: RIGHT TOTAL KNEE REPLACEMENT Activity: Per Instructions section Weightbearing Comment: WBAT WITH WALKER Non-emergency contact: Surgeon Call non-emergency contact if: you have any medication questions, your temperature is above 101, your wound has increased redness, your wound has increased drainage and your wound pain has increased Follow-up/Referrals: Melly Danielle D.O. [Primary Care Provider] - Diet: Regular Addtl Attending Provider Instructions: ACTIVITY RECOMMENDATIONS: SELF CARE INSTRUCTIONS AFTER TOTAL KNEE REPLACEMENT A. You may need to continue a physical therapy program after discharge from the hospital. There are several options available to you. Your doctor will assist you in selecting the best one for you. 1. An out-patient facility 2 to 3 times a week for therapy or home therapy. 2. Continue working on all exercises taught to you in the hospital. Your goals should be to increase bending of your knee to 90 degrees and beyond and to fully straighten your knee. B. You may progress at your own pace from walking with a walker or crutches to a cane; then to no assistive devices. C. Make walking a part of your daily routine. Be up as much as comfortable with rest periods throughout the day. Rest with leg elevation is very important. Use the ice wrap frequently for the first 3-4 weeks. D. There are no restrictions on activities. You may ride in a car, shop, participate in equipment engineering technician and all social activities. E. Wear the long elastic stockings (JOSE hose) 20 hours a day for 2 weeks after surgery. They can be removed several times a day for laundering and for a bath. F. You may shower, no tub baths until cleared by your doctor. SPECIAL CARE INSTRUCTIONS: VERY IMPORTANT TO READ AND REVIEW A. There are a few signs you need to watch for after you are home. Call [facility] if you notice any of the followin. Increased severe knee pain. Some pain is expected especially when you exercise. 2. Increased swelling in your leg or knee; pain or swelling of the calf muscle in either lower leg. 3. Any fluid drainage from the incision. 4. Shortness of breath or chest pain. B. Please call [facility] at if you have any concerns or questions about your operation or recovery. The doctor or his nurse will return your call promptly. C. You must take antibiotics before dental work, bladder, bowel or other surgery. Your doctor will provide you with a permanent care to carry describing this precaution. IMPORTANT: * REMEMBER TO TAKE ASPIRIN, 81 MG, TWICE DAILY FOR 4 WEEKS UNLESS OTHERWISE DIRECTED. THIS IS YOUR BLOOD THINNER. * HIGH RISK PATIENTS MAY BE PRESCRIBED A STRONGER BLOOD THINNER. THIS WILL BE PROVIDED AT DISCHARGE. * CALL IF INCREASED PAIN, REDNESS, DRAINAGE OR FEVER GREATER THAT 101. * WEAR JOSE HOSE 20 HOURS PER DAY FOR 2 WEEKS. * ROJAS Dressing- This is a large suction dressing covering your incision. This will help pull any excess drainage from the wound and allow your incision to heal properly. You may shower with this if you can keep the unit outside of the shower. If any bleeding or leakage is noted please call your doctor's office. This will remain on your incision for 7 days and then should be removed. This can be done yourself or by the home nursing staff if applicable. The entire unit is disposable once removed. Once removed, keep incision clean and dry. If redness or drainage is noted, please call your surgeon. ONCE ROJAS IS REMOVED, FOLLOW THESE INSTRUCTIONS: DERMABOND Prineo- This is a mesh tape dressing that is covered with glue. It should remain in place until the incision is properly healed, usually 10-14 days. This dressing is designed to naturally slough off. You may trim the excess mesh tape as it peels off. Incision may be briefly wet in a shower. Dry immediately by blotting with a clean, dry towel. Do not bath or swim until instructed by your doctor. Do not scratch, rub, or pick at the dressing. Do not apply any topical ointments or lotions until dressing is completely removed and/or instructed by your doctor. There may be a small piece of suture material at one end of your incision. Do not pull or trim this. If it is bothersome or catching on clothing, you may cov er it with a band-aid. IF INCISION IS LEAKING THROUGH DRESSING, CALL THE OFFICE . FOLLOW UP VISIT: If appointment is not already scheduled: Please call [facility] to make a follow-up appointment for 2 weeks after your surgery at . Pending Studies at Discharge: No Stand-Alone Forms: [employer], Smoking Cessation Medications and DC Order Prescriptions: New acetaminophen [Tylenol Extra Strength] 500 mg Tablet 1,000 mg PO Q8 21 Days Qty: 126 0RF celecoxib [Celebrex] 200 mg Capsule 200 mg PO BID 30 Days Qty: 60 0RF aspirin 81 mg Tablet,Delayed Release (Dr/Ec) 81 mg PO BID 30 Days Qty: 60 0RF oxycodone 5 mg Tablet 5 - 10 mg PO Q6H PRN (Reason: pain) Qty: 30 0RF Rx Instructions: ongoing therapy, supervising dr liset morales. max 6 tabs in 24 hours docusate sodium 100 mg Capsule 100 mg PO BID 10 Days Qty: 20 0RF cefadroxil 500 mg capsule 500 mg PO BID 14 Days Qty: 28 0RF Continued atorvastatin 20 mg Tablet 20 mg PO QAM meclizine 25 mg Tablet 25 mg PO BID PRN (Reason: Vertigo) zolpidem [Ambien] 10 mg Tablet 10 mg PO HS cholecalciferol (vitamin D3) [Vitamin D3] 25 mcg (1,000 unit) Capsule 25 mcg PO QAM losartan 25 mg Tablet 25 mg PO QAM Discontinued aspirin [Aspir-81] 81 mg Tablet,Delayed Release (/Ec) 81 mg PO QAM saw palmetto 160 mg Capsule 160 mg PO QAM Discharge Orders: Discharge Order (Routine); Ordered 10/21/21 Ordered By: Dom Johnston Admission Data Admit Date/Time: 10/20/21 10:43 Attending Provider: Sathya Morales Admit Provider: Sathya Morales Primary Care Provider: Melly Danielle Other Interventions: Discharge Summary Assessment (RN) Last Done: 10/21/21 13:11
== END 2021-10-21 14:13 | disposition home or self-care (01) ==
LOC: 3E 06:12 → ASU 06:12